=== PATIENT | male | born 1995 | race Caucasian/White ===

== ENCOUNTER 2016-12-06 14:43 | Emergency (ER) | payer OTHER ==
[~2016-12-06] VITALS: Ht 167.6 cm; Wt 117.9 kg
[~2016-12-06 14:43] MED LIST: CYCLOBENZAPRINE10 MG PO; IBUPROFEN800 MG PO; LIDODERM700 MG TOP
[2016-12-06] MEDS ORDERED: ULTRAM50 MG PO (16:05)
== END 2016-12-06 16:18 | disposition home or self-care (01) ==
LOC: ED 14:43
DX: R10.30 Lower abdominal pain, unspecified (principal); Z88.0 Allergy status to penicillin
CPT/HCPCS: 80053; 81001; 82150; 83690; 85025; 96361; 96374; 99283; J1885; J7120

== ENCOUNTER 2017-03-07 13:56 | Emergency (ER) | payer OTHER ==
[~2017-03-07] VITALS: Ht 167.6 cm; Wt 117.9 kg
[~2017-03-07 13:56] MED LIST changes: +ULTRAM50 MG PO
== END 2017-03-07 15:33 | disposition home or self-care (01) ==
LOC: ED 13:56
DX: M54.42 Lumbago with sciatica, left side (principal); M54.41 Lumbago with sciatica, right side; G89.29 Other chronic pain; R32 Unspecified urinary incontinence; F32.9 Major depressive disorder, single episode, unspecified; Z88.0 Allergy status to penicillin
CPT/HCPCS: 96372; 99282; J1885

== ENCOUNTER → 2017-03-08 | Emergency (ER) | payer OTHER ==
[~2017-03-08] VITALS: Ht 167.6 cm; Wt 117.9 kg
== END | disposition home or self-care (01) ==
LOC: ED 20:12
DX: M54.5 Low back pain (principal); Z88.0 Allergy status to penicillin
CPT/HCPCS: 99282

== ENCOUNTER 2020-04-05 10:06 | Emergency (ER) | payer OTHER ==
[~2020-04-05] VITALS: Ht 167.6 cm; Wt 117.9 kg
[2020-04-05] MEDS ORDERED: NORCO 5-325 TA1 EACH PO (13:20)
== END 2020-04-05 13:29 | disposition home or self-care (01) ==
LOC: ED 10:06
DX: R07.89 Other chest pain (principal); R10.30 Lower abdominal pain, unspecified; V40.6XXA Car passenger injured in collision with pedestrian or animal in traffic accident, initial encounter; Z88.0 Allergy status to penicillin
CPT/HCPCS: 71046; 80053; 81001; 83690; 85025; 96372; 99284-25; J1885